=== PATIENT | female | born 2000 | race African-American/Black ===

== ENCOUNTER 2022-04-04 03:29 | Emergency (ER) | payer MEDICAID, OTHER ==
[~2022-04-04] VITALS: Ht 167.6 cm; Wt 68.0 kg
[2022-04-04 03:41] VITALS: BP 110/71
== END 2022-04-04 06:00 | disposition left against medical advice (07) ==
LOC: ER 03:29
DX: Z53.21 Procedure and treatment not carried out due to patient leaving prior to being seen by health care provider (principal); I49.9 Cardiac arrhythmia, unspecified
CPT/HCPCS: 93005

== ENCOUNTER 2023-07-04 17:40 | Emergency (ER) | payer OTHER ==
[~2023-07-04] VITALS: Ht 162.6 cm; Wt 74.0 kg
[2023-07-04 17:50] VITALS: TEMP 98.6; O2SAT 100
[2023-07-04 21:45] VITALS: BP 139/76; PULSE 109; RESP 20
[2023-07-04] MEDS: IBUPROFEN 600MG TABLET PO ONE (21:45)
[2023-07-04] MEDS ORDERED: AMOX1TAB16 MT (21:54)
[2023-07-04] MEDS: AMOXICILLIN/POTASSIUM CLAVULANATE 875/125MG TAB PO ONE (22:23)
[2023-07-04] MEDS: TETANUS, DIPHTHERIA, PERTUSSIS VAC/PF 0.5ML (>10YR OLD) IM ONE (22:25)
== END 2023-07-04 22:49 | disposition home or self-care (01) ==
LOC: ER 17:40
DX: S00.81XA Abrasion of other part of head, initial encounter (principal); S40.812A Abrasion of left upper arm, initial encounter; W50.3XXA Accidental bite by another person, initial encounter; Y93.89 Activity, other specified; Y92.89 Other specified places as the place of occurrence of the external cause; Y99.8 Other external cause status
CPT/HCPCS: 90471; 90715; 99283

== ENCOUNTER 2024-11-12 17:14 | Emergency (ER) | payer OTHER ==
[~2024-11-12] VITALS: Ht 172.7 cm; Wt 68.0 kg
[~2024-11-12 17:14] MED LIST: AMOX1TAB16 MT
[2024-11-12 17:21] VITALS: TEMP 36.9; O2SAT 100
[2024-11-12 20:40] LABS: CLARITY URINE CLOUDY (CLEAR); COLOR URINE YELLOW (YELLOW); GLUCOSE URINE NEGATIVE (NEGATIVE); KETONES URINE 1+ (NEGATIVE); LEUKOCYTE ESTERASE URINE 1+ (NEGATIVE); NITRITE URINE NEGATIVE (NEGATIVE); OCCULT BLOOD URINE NEGATIVE (NEGATIVE); PH URINE 6.0 (4.5-8.0); PROTEIN URINE NEGATIVE (NEGATIVE); SPECIFIC GRAVITY URINE 1.026 (1.005-1.030); UROBILINOGEN URINE 1.0 E.U./dL (0.2-1.0)
[2024-11-12 20:47] LABS: BACTERIA URINE 2+; RBC URINE 0-2 /hpf (0-2); SQUAMOUS EPITHELIAL CELL URINE 1+ /lpf (RARE/1+)
[2024-11-12 21:20] LABS: BASOPHILS % 0.2 % (0.0-2.0); EOSINOPHILS % 1.5 % (0.0-5.0); HEMATOCRIT. 41.5 % (36.0-48.0); HEMOGLOBIN. 14.0 g/dL (12.0-16.0); LYMPHOCYTES % 23.6 % (20.0-50.0); MEAN PLATELET VOLUME 8.5 fl (7.4-10.4); MONOCYTES % 11.4 % (2.0-8.0); NEUTROPHILS % 63.3 % (40.0-76.0); PLATELET 235 x1000/uL (130-400); RED BLOOD CELL COUNT 4.46 mill/uL (4.2-5.4); RED CELL DISTRIBUTION WIDTH 13.2 % (11.6-14.6)
[2024-11-12 21:33] LABS: B-HCG QUANTITATIVE 103 mIU/mL (<6)
[2024-11-12 21:34] LABS: CREATININE 0.8 mg/dL (0.6-1.0); HCG SCREEN POSITIVE; UREA NITROGEN BLOOD 7 mg/dL (9-23)
[2024-11-12 21:36] LABS: ASPARTATE AMINOTRANSFERASE 25 IU/L (<34); BILIRUBIN DIRECT 0.3 mg/dL (<=3.0); BILIRUBIN TOTAL 0.9 mg/dL (0.1-1.0); PROTEIN TOTAL 7.6 g/dL (6.0-8.3)
[2024-11-12] MEDS ORDERED: PNV1TABL76 MT (22:21)
[2024-11-12] MEDS ORDERED: AM250 MT (22:22)
[2024-11-12 23:10] VITALS: BP 147/85; PULSE 87; RESP 16; O2SAT 100
== END 2024-11-12 23:33 | disposition home or self-care (01) ==
LOC: ER 17:14
DX: O26.891 Other specified pregnancy related conditions, first trimester (principal); B34.9 Viral infection, unspecified; N89.8 Other specified noninflammatory disorders of vagina; Z79.899 Other long term (current) drug therapy
CPT/HCPCS: 36415; 76830; 76856; 80048; 80076; 81003; 81025; 83735; 84702; 84703; 85025; 86850; 86900; 99284